=== PATIENT | male | born 1965 | race Caucasian/White ===

== ENCOUNTER → 2017-01-07 | Outpatient (CLI) | payer BC ==
[~2017-01-07] MED LIST: ARGI1CAP2 PO; CHOL1TAB2; CHOL2000 PO; FLUT0.0529; FLUT0.15 NAE; MONT1TAB5; MULT-506 PO; OMEG10007 PO; OMEGCAP2 PO; PROB1CAP41; PYRI100T4 PO; SYN50; TRAZ50TA35 PO
--- NOTE | 2017-01-07 20:54 | DIAGNOSTIC IMAGING REPORT ---
LEFT WRIST MIN 3 VIEWS ROUTINE CLINICAL HISTORY: Left wrist pain status post trauma COMPARISON: None. DISCUSSION: No fractures or dislocations are visualized. IMPRESSION: No acute fractures identified Electronically signed by: Hitesh Canales M.D. 01/07/2017 8:52 PM Dictated Date/Time: 01/07/2017 8:51 PM
== END | disposition home or self-care (01) ==
LOC: C.RAD 20:37
PROVIDERS: ATTEND Family Medicine
DX: S69.92XA Unspecified injury of left wrist, hand and finger(s), initial encounter (principal); X58.XXXA Exposure to other specified factors, initial encounter

== ENCOUNTER 2017-03-30 17:19 | Emergency (ER) | payer BC ==
[~2017-03-30 17:19] MED LIST changes: -ARGI1CAP2 PO; -CHOL2000 PO; -FLUT0.15 NAE; -MULT-506 PO; -OMEGCAP2 PO; -PYRI100T4 PO; -TRAZ50TA35 PO
[2017-03-30 17:24] VITALS: TEMP 36.7; Ht 185.4 cm
--- NOTE | 2017-03-30 17:29 | EMERGENCY ROOM VISIT NOTE ---
ED Visit Note First contact with patient: 17:27 CHIEF COMPLAINT: Ankle pain HISTORY OF PRESENT ILLNESS: This 51-year-old male patient presents to the emergency department after sustaining an injury to the left ankle this morning around 10:30 AM. The patient states he was mowing the lawn and the mower kicked back a rock that hit him in the ankle. Patient states the pain has gotten progressively worse throughout the day, to the point he is unable to ambulate now. The patient complains of pain along the front and inside of the ankle. The patient does not have pain of the foot. The patient rates the pain as throbbing and 9/10. The patient is not able to bear weight on the foot. Constant pain, worse with movement, weight bearing, and the dependent position. No knee pain, the patient is able to move their toes. No numbness or weakness of the foot, no laceration. The patient has not had a previous fracture to this ankle. The patient has taken no medication for the pain. The patient denies any other injury. REVIEW OF SYSTEMS: A 6 system review of systems was completed with positives and pertinent negatives listed in the HPI. ALLERGIES: See chart MEDICATIONS: See chart PMH: See chart SOCIAL HISTORY: See chart PHYSICAL EXAM: Vital Signs: Reviewed Nurse's notes, vital signs stable. GENERAL : Pleasant and cooperative, no acute distress, but appears in pain, well- developed, well-nourished. MENTAL STATUS: Alert, oriented to person place and time, and cooperative. MUSCULOSKELETAL: The left ankle is swollen and tender over the anterior and medial region, no bony tenderness of the medial or lateral malleolus. The skin is intact and there is no ligamentous instability. There is increased pain with range of motion of the ankle. There is no fifth metatarsal tenderness. There is no tenderness over the rest of the foot. There is no calf or tibia/fibular tenderness. There is no visual deformity. The foot and toes are warm and well-perfused. Dorsalis pedis pulse 2+. Sensation to pain and light touch is intact. Capillary refill less than 2 seconds. EMERGENCY DEPARTMENT COURSE: I examined the patient. Differential diagnosis includes contusion, fracture, hematoma. X-rays of the left ankle were reviewed by myself and read by radiology and reveal no acute bony injury, does show soft tissue swelling with small joint effusion. JOSE wrap and gel ankle splint were applied to the ankle under my direction and the position was satisfactory. Neurovascular status was rechecked and intact. The patient was instructed on the use of crutches. The patient was instructed to follow up with his PCP or orthopedics if no improvement. The patient was discharged home in good condition. Current/Historical Medications Scheduled Arginine (L-Arginine), Unknown Dose PO DAILY Cholecalciferol (Vitamin D3), 1 CAP PO DAILY Multivitamin (Multivitamin), 1 TAB PO DAILY [place]-3 Fatty Acids (Fish Oil), 1 CAP PO DAILY Pyridoxine (Vitamin B6), 100 MG PO DAILY Trazodone Hcl (Trazodone), 50 MG PO HS Scheduled PRN Fluticasone Propionate (Nasal) (Flonase Allergy Relief), 1 SPRAY KATE for Nasal Congestion Allergies Coded Allergies: No Known Allergies (Unverified , 03/30/17) Vital Signs Date Time Temp Pulse Resp B/P (MAP) Pulse Ox O2 Delivery O2 Flow Rate FiO2 03/30/17 18:35 76 16 137/81 98 03/30/17 17:24 36.7 80 20 143/79 100 Room Air Medications Administered Medications (Trade) Dose Ordered Sig/Alexi Route Start Time Stop Time Status Last Admin Dose Admin Ibuprofen (Motrin Tab) 800 mg NOW STAT PO 03/30/17 17:35 03/30/17 17:37 DC 03/30/17 17:43 800 MG Departure Information Impression Primary Impression: Contusion of left ankle, initial encounter Dispostion Home / Self-Care Condition GOOD Referrals Waqar Langston M.D. (PCP) Patient Instructions ED Contusion Lower Ext, My [facility] Additional Instructions Ice and elevation for the next 48 hours to help reduce pain and swelling. Keep the ankle wrapped and wear the splint for comfort. Use crutches to avoid weight bearing on the left ankle until your pain is resolved. Ibuprofen 600 mg and/or Tylenol 1000 mg every 8 hours if needed for pain. See your doctor or an orthopedic surgeon if there is no improvement in 4 - 5 days. Please return to the ER for worsening symptoms, including severe worsening pain , increased swelling, numbness or discoloration of the foot, redness or heat over the ankle joint, fevers/chills, or any other concerns.
[2017-03-30] MEDS ORDERED: IBUPROFEN 800 MG TAB PO STA (17:35)
--- NOTE | 2017-03-30 17:59 | DIAGNOSTIC IMAGING REPORT ---
LEFT ANKLE MIN 3 VIEWS ROUTINE CLINICAL HISTORY: Left ankle pain status post trauma COMPARISON: None. DISCUSSION: No fractures or dislocations are visualized. The ankle mortise appears intact on these nonstress views. There is a probable small joint effusion. There are tiny Achilles insertional and plantar calcaneal spurs. IMPRESSION: Probable small joint effusion. No fractures are visualized. Electronically signed by: Hitesh Canales M.D. 03/30/2017 5:57 PM Dictated Date/Time: 03/30/2017 5:57 PM
[2017-03-30] MEDS ORDERED: TRAZ50TA35 PO (18:20)
[2017-03-30] MEDS ORDERED: MULT-506 PO (18:20)
[2017-03-30] MEDS ORDERED: PYRI100T4 PO (18:20)
[2017-03-30] MEDS ORDERED: FLUT0.15 NAE (18:20)
[2017-03-30] MEDS ORDERED: ARGI1CAP2 PO (18:20)
[2017-03-30] MEDS ORDERED: CHOL2000 PO (18:20)
[2017-03-30] MEDS ORDERED: OMEGCAP2 PO (18:20)
[2017-03-30 18:35] VITALS: BP 137/81; PULSE 76; O2SAT 98
== END 2017-03-30 18:40 | disposition home or self-care (01) ==
LOC: C.EDB 17:20 → C.EDD 18:40
DX: S90.02XA Contusion of left ankle, initial encounter (principal); W22.8XXA Striking against or struck by other objects, initial encounter

== ENCOUNTER → 2017-09-26 | Outpatient (CLI) | payer OTHER ==
[~2017-09-26] MED LIST changes: +ARGI1CAP2 PO; -CHOL1TAB2; +CHOL2000 PO; -FLUT0.0529; +FLUT0.15 NAE; +LIDO5CRE13 RE; +METR0.7510 RE; -MONT1TAB5; +MULT-506 PO; -OMEG10007 PO; +OMEGCAP2 PO; +OPTIRAY 320 IV PRN; +OXYC-57 PO; -PROB1CAP41; +PYRI100T4 PO; +SILD100T PO; -SYN50; +TRAZ50TA35 PO; +VNTHFA/IN INH
[2017-09-26 13:10] LABS: ALBUMIN 4.2 gm/dl (3.4-5.0); ALT/SGPT 33 U/L (12-78); AST/SGOT 15 U/L (15-37); BLOOD UREA NITROGEN 19 mg/dl (7-18); CARBON DIOXIDE 29 mmol/L (21-32); CREATININE 1.16 mg/dl (0.60-1.40); GLUCOSE 103 mg/dl (70-99); LIPASE 94 U/L (73-393); POTASSIUM 3.6 mmol/L (3.5-5.1); SODIUM 137 mmol/L (136-145)
[2017-09-26 13:15] LABS: ALKALINE PHOSPHATASE 63 U/L (45-117); TOTAL PROTEIN 8.1 gm/dl (6.4-8.2)
--- NOTE | 2017-09-26 13:37 | DIAGNOSTIC IMAGING REPORT ---
CT SCAN OF THE ABDOMEN AND PELVIS WITH IV CONTRAST CLINICAL HISTORY: Generalized abdominal pain. COMPARISON STUDY: Abdominal CT dated 04/23/2007. TECHNIQUE: Following the IV administration of 93 cc of Optiray 320, CT scan of the abdomen and pelvis is performed from the lung bases to the proximal femora. Images are reviewed in the axial, sagittal, and coronal planes. IV contrast was administered without complication. A dose lowering technique was utilized adhering to the principles of ALARA. CT DOSE: 301.58 mGy.cm FINDINGS: Lung bases: The heart is normal in size and without pericardial effusion. The lung bases are clear noting bibasilar atelectasis. Liver: The contrast-enhanced liver is normal in size, contour, and attenuation. The liver is elongated, possible representing Pranav's lobe variant anatomy. There is no intrahepatic biliary ductal dilatation. The hepatic veins and portal veins are patent. Gallbladder: Unremarkable. Spleen: Normal in size and attenuation. Pancreas: Unremarkable. Adrenal glands: Unremarkable. Kidneys: The contrast enhanced kidneys are normal in size and without hydronephrosis. The kidneys enhance symmetrically. A subcentimeter cortical hypodensity in the lower pole of the left kidney likely represents a cyst but is too small for definitive characterization. Abdominal vasculature: The abdominal aorta is normal in course and caliber. Bowel: The cecum is located in the pelvis. No bowel obstruction is identified. Colonic fecal retention is observed. The appendix is well-visualized and normal. Peritoneum: There is no intraperitoneal free air or abdominal ascites. There is a fat-containing umbilical hernia. Lymphadenopathy: None. Pelvic viscera: The bladder is decompressed and grossly unremarkable. The prostate gland is not identified and presumed surgically absent. Skeletal structures: No lytic or blastic lesions are seen. IMPRESSION: 1. There are no acute infectious or inflammatory findings in the abdomen or pelvis. 2. There is mild to moderate colonic fecal retention. No bowel obstruction is seen. 3. The prostate gland is presumed surgically absent. Electronically signed by: Harlan Lucas M.D. 09/26/2017 1:36 PM Dictated Date/Time: 09/26/2017 1:30 PM
== END | disposition home or self-care (01) ==
LOC: C.CTS 12:19
PROVIDERS: ATTEND Family Medicine
DX: R10.9 Unspecified abdominal pain (principal)

== ENCOUNTER → 2017-12-03 | Outpatient (CLI) | payer OTHER ==
[~2017-12-03] MED LIST changes: -LIDO5CRE13 RE; -METR0.7510 RE; -OPTIRAY 320 IV PRN; -OXYC-57 PO
== END | disposition home or self-care (01) ==
LOC: C.CPL 08:26
PROVIDERS: ATTEND Surgery
DX: K64.9 Unspecified hemorrhoids (principal); Z01.810 Encounter for preprocedural cardiovascular examination

== ENCOUNTER → 2017-12-17 | Day surgery (SDC) | payer OTHER ==
[2017-12-05 07:52] VITALS: Ht 185.4 cm; Wt 78.2 kg
[~2017-12-17] VITALS: Ht 185.4 cm; Wt 78.2 kg
[~2017-12-17] MED LIST changes: +ATROPINE SULFATE 0.1 MG/ML 5ML SYR IV PRN; +BUPIVACAINE LIPOSOME 266 MG, BUPIVACAINE/EPINEPHRINE INJ 50 ML, SODIUM CHLORIDE 0.9% PF... INFIL SCH; +CLINDAMYCIN PHOS 150 MG/ML 2 ML VIAL IV SCH; +DEXAMETHASONE SOD INJ 4 MG/ML VIAL ONE; +EpHEDrine SULFATE INJ 50 MG/ML AMP IV PRN; +EpHEDrine SULFATE INJ 50 MG/ML AMP ONE; +FENTANYL CITRATE INJ 50 MCG/1 ML 2 ML VIAL IV PRN; +FENTANYL CITRATE INJ 50 MCG/1 ML 2 ML VIAL ONE; +GELATIN SPONGE SZ 100 ONE; +GLYCOPYRROLATE INJ 0.2 MG/ML VIAL ONE; +LACTATED RINGER'S 1000ML 1,000 ML IV SCH; +LIDO5CRE13 RE; +LIDOCAINE 2% JELLY 5 ML TUBE EXT ONE; +LIDOCAINE HCL 1% 20 ML VIAL ONE; +LIDOCAINE HCL 2% 2 ML VIAL (20MG/ML) ONE; +LIDOCAINE/EPINEPHRINE 1% 20 ML VIAL ONE; +METR0.7510 RE; +MIDAZOLAM HCL 1 MG/ML 2ML VIAL ONE; +NEOSTIGMINE METHYLSULFATE 5 MG/5 ML SYR ONE; +ONDANSETRON INJ 2 MG/ML 2 ML VIAL IV PRN; +ONDANSETRON INJ 2 MG/ML 2 ML VIAL ONE; +OXYC-57 PO; +OXYCODONE/ACETAMINOPHEN 5-325 TAB PO PRN; +PHENYLEPHRINE HCL INJ 10 MG/ML VIAL ONE; +PROPOFOL IV EMULSION 10 MG/ML 20 ML VIAL IV ONE; +SODIUM CHLORIDE 0.9% 1000ML 1,000 ML IV SCH; +SUCCINYLCHOLINE CHLORIDE 20 MG/ML 10 ML VIAL IV ONE
--- NOTE | 2017-12-17 08:25 | History & Physical Bridge - SC ---
H&P Re-Evaluation Bridge Note: I have examined the patient, reviewed the History & Physical and in the interval since the performance of the History & Physical I have noted the following changes of clinical significance: No changes noted
--- NOTE | 2017-12-17 09:29 | [facility] Post Operative Brief Note ---
Immediate Operative Summary Operative Date Dec 17, 2017. Pre-Operative Diagnosis Hemorrhoids Post-Operative Diagnosis mixed internal and external hemorrhoids Procedure(s) Performed Anorectal Exam Under Anesthesia, 2 column Hemorrhoidectomy mixed internal and external Surgeon Dr. Keya Xavier School Bus Dispatcher Surgeon(s) Jia Christianson PA-C Estimated Blood Loss 4CC Findings Consistent with Post-Op Diagnosis 2 column hemorrhoidectomy Specimens A. Hemorrhoids Drains None Anesthesia Type General Complication(s) none Disposition Accompanied Pt To Recovery: no Disposition: Recovery Room / PACU
--- NOTE | 2017-12-17 09:41 | Discharge Instructions-SurgCtr ---
Discharge Instructions Date of Service Dec 17, 2017. Visit Reason for Visit: Hemorrhoid Discharge Discharge Diagnosis / Problem: Hemorrhoid Discharge Goals Goal(s): Decrease discomfort, Improve function Medications Stopped Medications Name(s): stopped fish oil last Restart Stopped Medication(s): Can resume fish oil tomorrow, 12/18/2017 Activity Recommendations Activity Limitations: as noted below Lifting Limitations: no more than 10 pounds Exercise/Sports Limitations: until after follow-up appointment May Resume Sexual Activity: after follow-up appointment Shower/Bathe: tomorrow Driving or Machine Use: resume 3 days after discharge Anesthesia . Post Anesthesia Instructions: If you have had General Anesthesia or IV Sedation: * Do not drive today. * Resume driving when surgeon permits. * Do not make important decisions or sign legal documents today. * Call surgeon for: 1. Temperature elevations greater than 101 degrees F. 2. Uncontrollable pain. 3. Excessive bleeding. 4. Persistent nausea and vomiting. 5. Medication intolerance (nausea, vomiting or rash). * For nausea and vomiting use only clear liquids such as: tea, soda, bouillon until nausea subsides, then gradually increase diet as tolerated. * If you have any concerns or questions, call your surgeon's office. If physician is unavailable and it is an emergency, call 911 or go to the nearest emergency room. . Instructions / Follow-Up Instructions / Follow-Up Please follow-up with Dr. Xavier in the General Surgery [facility] in 1-2 weeks. Please call the office at [phone] to make this appointment. Please call the office with any questions or concerns. Recommendations: 1. Multiple sitz baths throughout the day. 2. Stool softener- avoid straining with bowel movements. 3. Increase water intake over the next several days. 4. Use prescription pain medication as needed. Diet Recommendations Home Diet: no limitations Procedures Procedures Performed: Anorectal Exam Under Anesthesia, 2 column Hemorrhoidectomy mixed internal and external Pending Studies Studies pending at discharge: yes List of pending studies: Pathology report. Medical Emergencies . Who to Call and When: Medical Emergencies: If at any time you feel your situation is an emergency, please call 911 immediately. . Non-Emergent Contact Non-Emergency issues call your: Primary Care Provider, Surgeon Call Non-Emergent contact if: temperature is above 101.5, your pain is not controlled . . "Provider Documentation" section prepared by Jia Christianson. . [place] Drug Monitoring Program Search Results: patient reviewed within database, no issues identified
--- NOTE | 2017-12-17 09:43 | [facility] Operative Report ---
Operative Report Operative Date Dec 17, 2017. Pre-Operative Diagnosis Hemorrhoids Post-Operative Diagnosis mixed internal and external hemorrhoids Procedure(s) Performed Anorectal Exam Under Anesthesia, 2 column Hemorrhoidectomy mixed internal and external Surgeon Dr. Keya Xavier Exhibition Organiser Surgeon(s) Jia Christianson PA-C Estimated Blood Loss 4CC Findings 2 column hemorrhoidectomy right posterior and left lateral columns Specimens A. Hemorrhoids Drains None Anesthesia Type General Complication(s) none Disposition no Recovery Room / PACU Indications 51-year-old male with grade 3 internal hemorrhoid and symptomatic external hemorrhoids refractory to medical therapy, plan for an rectal exam under anesthesia and hemorrhoidectomy. The risks of the procedure were discussed, all questions were answered, and the patient agreed to proceed with surgery as planned. Description of Procedure The patient was properly identified, consented, and taken to the operating room where he was placed in the supine position. General endotracheal anesthesia was induced. The patient was then placed in high lithotomy position. SCDs and a safety belt were placed. The patient's anus and buttocks were prepped and draped in the standard sterile fashion. Surgical timeout was performed and all parties were in agreement that this was the correct patient and procedure to be performed and we continued as planned. The external anal exam revealed prolapsed internal hemorrhoid. Digital rectal exam revealed no significant abnormality. A Ponce bivalve was inserted and the exam revealed mixed internal and external hemorrhoids. The largest was in the right posterior column and significant hemorrhoids in the left lateral position. Local anesthetic in the form of 1% Lidocaine with Epinephrine was injected around the anus. The right posterior column was grasped with a rat-tooth and was excised using a harmonic device. Hemostasis was achieved with cautery. The mucosal defect was closed with a running locking 0 Vicryl suture that was then sutured back on itself using a simple running suture. The left lateral column was excised in a similar manner, hemostasis achieved, and it was closed in a similar manner. Hemorrhoids were sent together as specimen. Hemostasis was confirmed. Exparel was injected around the anus. ProctoFoam was inserted. Dressing was applied. Anesthesia was ceased, the patient was transferred to the PACU for recovery in stable condition. All sponge, instrument, needle counts were correct at the conclusion of the procedure. The patient tolerated the procedure well. The physician's urology physician assistant was present and scrubbed for the entirety of the procedure. She was essential in positioning the patient, prepping and draping, retraction and exposure, excision of hemorrhoids, and placement of the dressings. I attest to the content of the Intraoperative Record and any orders documented therein. Any exceptions are noted below.
[2017-12-17 10:34] VITALS: TEMP 36.4
--- NOTE | 2017-12-17 11:15 | Anesthesia Progress Nt - [facility] ---
Anesthesia Post Op Note Date & Time Dec 17, 2017 at 11:15 Vital Signs Pain Intensity: 3.0 Vital Signs Past 12 Hours Date Time Temp Pulse Resp B/P (MAP) Pulse Ox O2 Delivery O2 Flow Rate FiO2 12/17/17 10:34 36.4 65 18 151/92 (111) 97 Room Air 12/17/17 10:32 68 14 97 12/17/17 10:32 69 14 12/17/17 10:31 137/93 12/17/17 10:27 76 17 96 12/17/17 10:27 76 17 12/17/17 10:26 149/95 12/17/17 10:25 74 16 98 12/17/17 10:25 73 16 12/17/17 10:25 36.6 70 16 149/95 99 Room Air 12/17/17 10:21 136/98 12/17/17 10:20 75 19 96 12/17/17 10:20 74 19 12/17/17 10:16 123/83 12/17/17 10:15 73 13 12/17/17 10:15 75 13 97 12/17/17 10:11 137/81 12/17/17 10:10 70 11 98 12/17/17 10:10 68 11 12/17/17 10:06 132/84 12/17/17 10:05 67 12 12/17/17 10:05 67 12 98 12/17/17 10:01 131/83 12/17/17 10:00 72 17 12/17/17 10:00 72 17 100 12/17/17 09:56 128/76 12/17/17 09:55 70 22 12/17/17 09:55 70 22 99 12/17/17 09:51 121/74 12/17/17 09:50 66 13 100 12/17/17 09:50 67 13 12/17/17 09:46 121/71 12/17/17 09:45 66 10 100 12/17/17 09:45 66 10 12/17/17 09:41 119/69 12/17/17 09:40 74 15 12/17/17 09:40 75 15 100 12/17/17 09:37 128/79 12/17/17 09:35 36.5 86 16 128/79 100 Mask 6 12/17/17 07:20 36.8 68 16 131/91 (104) 98 Room Air Notes Mental Status: alert / awake / arousable, participated in evaluation Pt Amnestic to Procedure: Yes Nausea / Vomiting: adequately controlled Pain: adequately controlled Airway Patency, RR, SpO2: stable & adequate BP & HR: stable & adequate Hydration State: stable & adequate Anesthetic Complications: no major complications apparent
[2017-12-17 11:30] VITALS: BP 121/78; PULSE 68; O2SAT 96
== END | disposition home or self-care (01) ==
LOC: X.SURG 07:02
PROVIDERS: ATTEND Surgery
DX: K64.9 Unspecified hemorrhoids (principal); E78.00 Pure hypercholesterolemia, unspecified; I10 Essential (primary) hypertension; J45.909 Unspecified asthma, uncomplicated; E03.9 Hypothyroidism, unspecified; Z85.49 Personal history of malignant neoplasm of other male genital organs; Z90.89 Acquired absence of other organs; Z98.890 Other specified postprocedural states; Z79.899 Other long term (current) drug therapy; Z82.3 Family history of stroke; Z82.49 Family history of ischemic heart disease and other diseases of the circulatory system